=== PATIENT | female | born 1995 ===

== ENCOUNTER 2018-12-20 09:15 | Emergency (ER) | payer SELFPAY ==
[2018-12-20 09:25] VITALS: BMI 25.9
--- NOTE | 2018-12-20 10:06 | ED PDOC ---
HPI: Chest Pain Time Seen by Provider: 12/20/18 09:35 Chief Complaint (Nursing): Chest Pain Chief Complaint (Provider): Chest pain History Per: Patient, Customer Success Specialist (Karyna #[id number]) Additional Complaint(s): Pt reports L sided chest pain since last PM, associated with subjective fever, constant, did not take pain medication. Pain worse with movement. Denies SOB, palpitations, calf pain, leg swelling. Past Medical History Reviewed: Nursing Documentation, Vital Signs Vital Signs: Last Vital Signs Temp 99.2 F 12/20/18 09:26 Pulse 86 12/20/18 09:26 Resp 20 12/20/18 09:26 BP 116/75 12/20/18 09:26 Pulse Ox 99 12/20/18 09:26 - Medical History PMH: No Chronic Diseases - Surgical History Surgical History: No Surg Hx - Family History Family History: States: Unknown Family Hx - Living Arrangements Living Arrangements: With Family - Social History Current smoker - smoking cessation education provided: No Alcohol: None - Home Medications Home Medications: Ambulatory Orders Medication Instructions Recorded Naproxen [Naprosyn] 500 mg PO BID PRN #15 tablet 12/20/18 - Allergies Allergies/Adverse Reactions: Allergies Allergy/AdvReac Type Severity Reaction Status Date / Time No Known Allergies Allergy Verified 12/20/18 09:44 CINDY Risk Score for UA/NSTEMI - CINDY Risk Score Age > 64: NO 3 or more CAD Risk Factors: NO Known CAD (Stenosis greater than 50%): NO Aspirin use in past 7 days: NO Severe Angina: NO EKG ST changes greater than 0.5mm: NO Positive Cardiac Marker: NO CINDY Score: 0 Risk %: 5% Wells Criteria for PE - Wells Criteria for Pulmonary Embolism Clinical Signs and Symptoms of DVT: No P.E is #1 Diagnosis, or Equally Likely: No Heart Rate >100: No Immobilization at least 3 days;Surgery previous 4 weeks: No Previous, objectively diagnosed PE or DVT: No Hemoptysis: No Malignancy w/treatment within 6 months, or palliative: No Total Score: 0 Review of Systems Constitutional: Positive for: Fever (Subjective). Negative for: Weakness, M alaise Cardiovascular: Positive for: Chest Pain. Negative for: Palpitations Respiratory: Negative for: Cough, Shortness of Breath Gastrointestinal: Negative for: Abdominal Pain Skin: Negative for: Rash Neurological: Negative for: Headache, Dizziness Physical Exam - Reviewed Nursing Documentation Reviewed: Yes Vital Signs Reviewed: Yes - Physical Exam Appears: Positive for: Well, No Acute Distress Head Exam: Positive for: ATRAUMATIC, NORMAL INSPECTION Skin: Positive for: Normal Color, Warm, Dry Eye Exam: Positive for: Normal appearance, EOMI, PERRL Cardiovascular/Chest: Positive for: Regular Rate, Rhythm. Negative for: Chest Non Tender (L chest wall) Respiratory: Positive for: Normal Breath Sounds. Negative for: Stridor, Wheezing Gastrointestinal/Abdominal: Positive for: Normal Exam Extremity: Positive for: Normal ROM. Negative for: Calf Tenderness, Swelling Neurological/Psych: Positive for: Awake, Alert, Oriented - Laboratory Results Result Diagrams: 12/20/18 10:25 12/20/18 10:25 - ECG Interpretation Of ECG: SR @ 84, short ID, no ST-T changes. O2 Sat by Pulse Oximetry: 99 Pulse Ox Interpretation: Normal - Radiology X-Ray: Interpreted by Me X-Ray Interpretation: No Acute Disease Medical Decision Making Medical Decision Makin yo female with chest wall pain. - labs - EKG - CXR - Motrin Disposition - Clinical Impression Clinical Impression: Chest wall pain - Disposition [facility]errals: [facility] [Outside] Disposition: Routine/Home Disposition Time: 12:52 Condition: STABLE Prescriptions: Naproxen [Naprosyn] 500 mg PO BID PRN #15 tablet PRN Reason: Pain, Moderate (4-7) Instructions: Chest Pain Forms: [employer] (Yi) Print Language: OMANI
[2018-12-20 10:36] LABS: BASO % 0.4 % (0.0-2.0); EOS % 0.1 % (0.0-4.0); HEMOGLOBIN 12.6 g/dL (12.0-16.0); LYMPH # 1.3 K/uL (1.0-4.3); LYMPH % 21.4 % (20.0-40.0); MEAN CELL VOLUME 87.8 fl (81.0-99.0); MEAN CORPUSCULAR HEMOGLOBIN 29.3 pg (27.0-31.0); MEAN CORPUSCULAR HGB CONC 33.4 g/dL (33.0-37.0); MEAN PLATELET VOLUME 8.5 fl (7.2-11.7); MONO # 0.8 K/uL (0.0-0.8); NEUT # 3.8 K/uL (1.8-7.0); NEUT % 64.1 % (50.0-75.0); RBC 4.31 Mil/uL (3.80-5.20); RED CELL DISTRIBUTION WIDTH 13.4 % (11.5-14.5)
[2018-12-20 10:42] LABS: INR 1.2; PROTHROMBIN TIME 14.1 Seconds (9.8-13.1)
[2018-12-20 10:47] LABS: ALB/GLOB RATIO 1.3 (1.0-2.1); ALBUMIN 4.5 g/dL (3.5-5.0); ALT/SGPT 27 U/L (9-52); AST/SGOT 25 U/L (14-36); BLOOD UREA NITROGEN 9 mg/dl (7-17); CALCIUM 9.3 mg/dL (8.4-10.2); GFR NON-AFRICAN AMERICAN > 60
[2018-12-20 10:59] LABS: D DIMER < 200 ng/mlDDU (0-230)
[2018-12-20 12:59] VITALS: BP 108/59; PULSE 66; RESP 16; TEMP 98.5; O2SAT 98
--- NOTE | 2018-12-20 13:18 | RAD ---
Date of service: 12/20/2018 HISTORY: Left chest wall Pain. No history of recent/ related trauma provided. COMPARISON: No prior. TECHNIQUE: Chest PA and lateral views FINDINGS: LUNGS: No active pulmonary disease. PLEURA: No significant pleural effusion identified. No pneumothorax apparent. CARDIOVASCULAR: No aortic atherosclerotic calcification present. Normal cardiac size. No pulmonary vascular congestion. OSSEOUS STRUCTURES: No significant abnormalities. VISUALIZED UPPER ABDOMEN: Normal. OTHER FINDINGS: None. IMPRESSION: No active disease.
--- NOTE | 2018-12-20 18:26 | CARD ---
APPROVED REPORT Date of service: 12/20/2018 EKG Measurement Heart [id number] <Conclusion> Sinus rhythm with short CA Otherwise normal ECG
== END 2018-12-20 13:18 | disposition home or self-care (01) ==
LOC: H.ER 09:15
DX: R07.89 Other chest pain (principal)